=== PATIENT | male | born 1985 | race Two or more races ===

== ENCOUNTER 2021-01-15 09:16 | Outpatient (CLI) | payer OTHER | END 2021-01-15 09:17 | disposition home or self-care (01) | LOC: LAB 09:16 | PROVIDERS: ATTEND Specialist | DX: E53.8 Deficiency of other specified B group vitamins (principal); Z01.818 Encounter for other preprocedural examination; R79.0 Abnormal level of blood mineral; E55.9 Vitamin D deficiency, unspecified; Z11.4 Encounter for screening for human immunodeficiency virus [HIV]; R63.4 Abnormal weight loss; K73.8 Other chronic hepatitis, not elsewhere classified; E78.00 Pure hypercholesterolemia, unspecified ==

== ENCOUNTER 2022-01-26 08:50 | Outpatient (CLI) | payer OTHER | END 2022-01-26 08:59 | disposition home or self-care (01) | LOC: LAB 08:50 | PROVIDERS: ATTEND General Practice | DX: I10 Essential (primary) hypertension (principal); E78.5 Hyperlipidemia, unspecified; D50.9 Iron deficiency anemia, unspecified; N39.0 Urinary tract infection, site not specified; Z12.11 Encounter for screening for malignant neoplasm of colon; Z11.4 Encounter for screening for human immunodeficiency virus [HIV]; E66.01 Morbid (severe) obesity due to excess calories ==

== ENCOUNTER 2022-03-06 10:22 | Outpatient (CLI) | payer OTHER | END 2022-03-06 10:32 | disposition home or self-care (01) | LOC: RAD 10:22 | PROVIDERS: ATTEND General Practice | DX: R74.9 Abnormal serum enzyme level, unspecified (principal); N18.9 Chronic kidney disease, unspecified; M25.562 Pain in left knee; I12.9 Hypertensive chronic kidney disease with stage 1 through stage 4 chronic kidney disease, or unspecified chronic kidney disease ==

== ENCOUNTER → 2022-04-01 07:59 | Outpatient (CLI) | payer OTHER | END | disposition home or self-care (01) | LOC: LAB 07:59 | PROVIDERS: ATTEND General Practice | DX: I12.9 Hypertensive chronic kidney disease with stage 1 through stage 4 chronic kidney disease, or unspecified chronic kidney disease (principal); R73.9 Hyperglycemia, unspecified; R74.9 Abnormal serum enzyme level, unspecified ==

== ENCOUNTER → 2022-05-18 08:01 | Outpatient (CLI) | payer OTHER | END | disposition home or self-care (01) | LOC: LAB 08:01 | PROVIDERS: ATTEND Surgery | DX: D46.4 Refractory anemia, unspecified (principal); E11.9 Type 2 diabetes mellitus without complications; E03.9 Hypothyroidism, unspecified; E54 Ascorbic acid deficiency; E55.9 Vitamin D deficiency, unspecified; D51.9 Vitamin B12 deficiency anemia, unspecified; B96.81 Helicobacter pylori [H. pylori] as the cause of diseases classified elsewhere ==

== ENCOUNTER 2022-09-29 07:12 | Outpatient (CLI) | payer OTHER | END 2022-09-29 07:25 | disposition home or self-care (01) | LOC: LAB 07:12 | DX: K76.0 Fatty (change of) liver, not elsewhere classified (principal); I12.9 Hypertensive chronic kidney disease with stage 1 through stage 4 chronic kidney disease, or unspecified chronic kidney disease; E66.01 Morbid (severe) obesity due to excess calories; E78.2 Mixed hyperlipidemia ==

== ENCOUNTER → 2022-11-16 09:19 | Outpatient (CLI) | payer OTHER ==
[2022-11-16 09:44] LABS: ABG PH 7.437 (7.35-7.45); ABG PO2 97.1 mmHg (80-100); ABG pCO2 39.1 mmHg (35-45); SaO2 97.8 %
[2022-11-16 09:45] LABS: BASE EXCESS 1.6 mmol/l; BICARBONATE 25.8 mmol/l (23-25); allen test SATISFACTORY; o2 21 %; puncture site RADIAL RIGHT
== END | disposition home or self-care (01) ==
LOC: LAB 09:19
DX: G47.33 Obstructive sleep apnea (adult) (pediatric) (principal)

== ENCOUNTER 2022-11-25 08:07 | Outpatient (CLI) | payer OTHER ==
[2022-11-25 09:45] LABS: PH,URINE 6.5 (5.0-8.0); URINE APPEARANCE Clear; URINE BILIRRUBIN Negative (NEGATIVE); URINE BLOOD Negative; URINE COLOR Dark Yellow; URINE GLUCOSE Negative (NEGATIVE); URINE LEUKOCYTE Negative; URINE NITRATE Negative; URINE PROTEIN Negative (NEGATIVE); URINE UROBILINOGEN 0.2 E.U./dl
[2022-11-25 09:50] LABS: URINE BACTERIA 117.1 uL (0.0-1933); URINE RBC 2.7 uL (0.0-20.8)
[2022-11-25 09:51] LABS: HEMATOCRIT 44.8 % (39.0-48.0); HEMOGLOBIN 14.2 g/dL (13-16.00); MEAN CELL VOLUME 80.1 fL (80.0-100.00); MEAN CORPUSCULAR HEMOGLOBIN 25.3 pg (27.00-32.0); MEAN CORPUSCULAR HGB CONC 31.6 g/dl (32.0-36.0); PLATELET COUNT 257 K/uL (150-450); RED BLOOD COUNT 5.59 M/uL (4.00-6.00); RED CELL DISTRIBUTION WIDTH 15.2 % (11.5-14.5)
[2022-11-25 10:11] LABS: INR 1.06; PARTIAL THROMBOPLASTIN TIME 29.6 SECONDS (22.0-34.0); PROTHROMBIN TIME 11.1 SECONDS (9.0-11.5)
[2022-11-25 10:12] LABS: URINE EPITHELIAL CELLS 0.4 uL (0.0-38.8); URINE WBC 1.5 uL (0.0-23.2)
[2022-11-25 10:23] LABS: ALBUMIN 4.3 gm/dL (3.4-5.0); CALCIUM 9.5 mg/dL (8.5-10.1); CREATININE SERUM 1.18 mg/dL (0.70-1.30); GFR 69.85; GLOBULINA 3.7 G/DL (2.4-3.5); POTASSIUM 4.5 mEq/L (3.5-5.1); T4 TOTAL 8.41 UG/DL (4.5-12.1); TSH 1.37 uIU/mL (0.358-3.74)
== END 2022-11-25 10:44 | disposition home or self-care (01) ==
LOC: LAB 08:07
DX: E11.9 Type 2 diabetes mellitus without complications (principal); E03.9 Hypothyroidism, unspecified; E54 Ascorbic acid deficiency; E55.9 Vitamin D deficiency, unspecified; D51.9 Vitamin B12 deficiency anemia, unspecified; R19.5 Other fecal abnormalities; Z11.59 Encounter for screening for other viral diseases

== ENCOUNTER 2022-12-01 07:55 | Outpatient (CLI) | payer OTHER | END 2022-12-01 12:40 | disposition home or self-care (01) | LOC: LAB 07:55 | PROVIDERS: ATTEND Surgery | DX: Z11.59 Encounter for screening for other viral diseases (principal); K21.9 Gastro-esophageal reflux disease without esophagitis ==

== ENCOUNTER 2022-12-24 11:28 | Outpatient (CLI) | payer OTHER | END 2022-12-24 11:32 | disposition home or self-care (01) | LOC: LAB 11:28 | PROVIDERS: ATTEND Surgery | DX: Z20.822 Contact with and (suspected) exposure to COVID-19 (principal) ==

== ENCOUNTER 2023-02-16 07:35 | Outpatient (CLI) | payer OTHER ==
[2023-02-16 08:36] LABS: HEMATOCRIT 42.7 % (39.0-48.0); HEMOGLOBIN 13.8 g/dL (13-16.00); MEAN CELL VOLUME 78.6 fL (80.0-100.00); MEAN CORPUSCULAR HEMOGLOBIN 25.5 pg (27.00-32.0); MEAN CORPUSCULAR HGB CONC 32.4 g/dl (32.0-36.0); PLATELET COUNT 197 K/uL (150-450); RED BLOOD COUNT 5.43 M/uL (4.00-6.00)
[2023-02-16 09:37] LABS: BILIRUBIN TOTAL 1.19 mg/dL (0.3-1.2); CALCIUM 9.5 mg/dL (8.5-10.1); CHOL HDL RATIO 3.6 (0-5.0); CREATININE SERUM 0.94 mg/dL (0.70-1.30); GFR 90.3; GLOBULINA 3.1 G/DL (2.4-3.5); POTASSIUM 4.34 mEq/L (3.5-5.1); T4 TOTAL 7.34 UG/DL (4.5-12.1); TOTAL PROTEIN 7.1 gm/dL (6.4-8.2); TSH 0.979 uIU/mL (0.358-3.74)
[2023-02-16 12:50] LABS: FOLIC ACID 13.09 ng/ml (4.78-20); T3 TOTAL 1.19 ng/ml (0.846-2.02); VITAMIN D3 25 HYDROXY 33.89 ng/ml (30-120)
== END 2023-02-16 07:38 | disposition home or self-care (01) ==
LOC: LAB 07:35
PROVIDERS: ATTEND Surgery
DX: D46.4 Refractory anemia, unspecified (principal); E11.9 Type 2 diabetes mellitus without complications; E03.9 Hypothyroidism, unspecified; E54 Ascorbic acid deficiency; E55.9 Vitamin D deficiency, unspecified; D51.9 Vitamin B12 deficiency anemia, unspecified; R19.5 Other fecal abnormalities; Z11.59 Encounter for screening for other viral diseases

== ENCOUNTER 2023-05-12 07:07 | Outpatient (CLI) | payer OTHER ==
[2023-05-12 08:34] LABS: HEMATOCRIT 40.1 % (39.0-48.0); HEMOGLOBIN 13.4 g/dL (13-16.00); MEAN CELL VOLUME 77.9 fL (80.0-100.00); MEAN CORPUSCULAR HEMOGLOBIN 25.9 pg (27.00-32.0); MEAN CORPUSCULAR HGB CONC 33.3 g/dl (32.0-36.0); PLATELET COUNT 219 K/uL (150-450); RED BLOOD COUNT 5.15 M/uL (4.00-6.00); RED CELL DISTRIBUTION WIDTH 16.6 % (11.5-14.5)
[2023-05-12 09:19] LABS: ALBUMIN 3.9 gm/dL (3.4-5.0); BILIRUBIN TOTAL 1.48 mg/dL (0.3-1.2); CALCIUM 9.7 mg/dL (8.5-10.1); CREATININE SERUM 0.99 mg/dL (0.70-1.30); GFR 85.06; GLOBULINA 3.2 G/DL (2.4-3.5); POTASSIUM 4.14 mEq/L (3.5-5.1); T4 TOTAL 5.96 UG/DL (4.5-12.1); TOTAL PROTEIN 7.1 gm/dL (6.4-8.2); TSH 0.913 uIU/mL (0.358-3.74)
[2023-05-12 11:26] LABS: FOLIC ACID 6.54 ng/ml (4.78-20); T3 TOTAL 1.1 ng/ml (0.846-2.02); VITAMIN D3 25 HYDROXY 33.43 ng/ml (30-120)
== END 2023-05-12 07:08 | disposition home or self-care (01) ==
LOC: LAB 07:07
PROVIDERS: ATTEND Surgery
DX: D64.4 Congenital dyserythropoietic anemia (principal); E11.9 Type 2 diabetes mellitus without complications; E03.9 Hypothyroidism, unspecified; E54 Ascorbic acid deficiency; E55.9 Vitamin D deficiency, unspecified; D51.9 Vitamin B12 deficiency anemia, unspecified; R19.5 Other fecal abnormalities; Z11.59 Encounter for screening for other viral diseases

== ENCOUNTER 2023-09-24 06:54 | Outpatient (CLI) | payer OTHER ==
[2023-09-24 08:13] LABS: HEMATOCRIT 39.3 % (39.0-48.0); HEMOGLOBIN 12.9 g/dL (13-16.00); MEAN CELL VOLUME 79.3 fL (80.0-100.00); MEAN CORPUSCULAR HGB CONC 32.8 g/dl (32.0-36.0); PLATELET COUNT 253 K/uL (150-450); RED BLOOD COUNT 4.96 M/uL (4.00-6.00); RED CELL DISTRIBUTION WIDTH 15.6 % (11.5-14.5)
[2023-09-24 08:58] LABS: ALBUMIN 4.2 gm/dL (3.4-5.0); BILIRUBIN TOTAL 1.53 mg/dL (0.3-1.2); CALCIUM 9.8 mg/dL (8.5-10.1); CHOL HDL RATIO 2.1 (0-5.0); CREATININE SERUM 0.85 mg/dL (0.70-1.30); FERRITIN 78.2 NG/ML (26-388); GFR 101.42; GLOBULINA 3.2 G/DL (2.4-3.5); POTASSIUM 4.29 mEq/L (3.5-5.1); T4 TOTAL 7.66 UG/DL (4.5-12.1); TOTAL PROTEIN 7.4 gm/dL (6.4-8.2); TSH 1.38 uIU/mL (0.358-3.74)
[2023-09-24 10:20] LABS: FOLIC ACID 11.8 ng/ml (4.78-20); T3 TOTAL 1.12 ng/ml (0.846-2.02); VITAMIN D3 25 HYDROXY 49.23 ng/ml (30-120)
== END 2023-09-24 06:55 | disposition home or self-care (01) ==
LOC: LAB 06:54
PROVIDERS: ATTEND General Practice
DX: D50.0 Iron deficiency anemia secondary to blood loss (chronic) (principal); I11.9 Hypertensive heart disease without heart failure; E03.9 Hypothyroidism, unspecified; E55.9 Vitamin D deficiency, unspecified; E78.2 Mixed hyperlipidemia

== ENCOUNTER 2023-12-24 07:59 | Outpatient (CLI) | payer OTHER ==
[2023-12-24 09:33] LABS: HEMOGLOBIN 13.6 g/dL (13-16.00); MEAN CELL VOLUME 82.2 fL (80.0-100.00); MEAN CORPUSCULAR HEMOGLOBIN 26.6 pg (27.00-32.0); MEAN CORPUSCULAR HGB CONC 32.4 g/dl (32.0-36.0); PLATELET COUNT 259 K/uL (150-450); RED BLOOD COUNT 5.12 M/uL (4.00-6.00); RED CELL DISTRIBUTION WIDTH 15.8 % (11.5-14.5)
[2023-12-24 10:35] LABS: ALBUMIN 4.2 gm/dL (3.4-5.0); BILIRUBIN TOTAL 1.3 mg/dL (0.3-1.2); CALCIUM 9.6 mg/dL (8.5-10.1); CHOL HDL RATIO 2.1 (0-5.0); CREATININE SERUM 0.83 mg/dL (0.70-1.30); GFR 104.25; GLOBULINA 3.1 G/DL (2.4-3.5); POTASSIUM 4.66 mEq/L (3.5-5.1); T4 TOTAL 7.42 UG/DL (4.5-12.1); TOTAL PROTEIN 7.3 gm/dL (6.4-8.2); TSH 0.896 uIU/mL (0.358-3.74)
[2023-12-24 10:41] LABS: FOLIC ACID 9.85 ng/ml (4.78-20); T3 TOTAL 1.01 ng/ml (0.846-2.02); VITAMIN D3 25 HYDROXY 37.79 ng/ml (30-120)
== END 2023-12-24 08:00 | disposition home or self-care (01) ==
LOC: LAB 07:59
PROVIDERS: ATTEND Surgery
DX: D46.4 Refractory anemia, unspecified (principal); E11.9 Type 2 diabetes mellitus without complications; E03.9 Hypothyroidism, unspecified; E54 Ascorbic acid deficiency; E55.9 Vitamin D deficiency, unspecified; D51.9 Vitamin B12 deficiency anemia, unspecified; R19.5 Other fecal abnormalities; Z11.59 Encounter for screening for other viral diseases

== ENCOUNTER 2024-04-14 07:59 | Outpatient (CLI) | payer OTHER ==
[2024-04-14 08:42] LABS: HEMATOCRIT 41.3 % (39.0-48.0); HEMOGLOBIN 13.7 g/dL (13-16.00); MEAN CELL VOLUME 80.3 fL (80.0-100.00); MEAN CORPUSCULAR HEMOGLOBIN 26.6 pg (27.00-32.0); MEAN CORPUSCULAR HGB CONC 33.2 g/dl (32.0-36.0); PLATELET COUNT 238 K/uL (150-450); RED BLOOD COUNT 5.14 M/uL (4.00-6.00); RED CELL DISTRIBUTION WIDTH 15.5 % (11.5-14.5)
[2024-04-14 09:25] LABS: ALBUMIN 4.2 gm/dL (3.4-5.0); BILIRUBIN TOTAL 1.42 mg/dL (0.3-1.2); CALCIUM 9.7 mg/dL (8.5-10.1); CHOL HDL RATIO 2.1 (0-5.0); CREATININE SERUM 0.91 mg/dL (0.70-1.30); GFR 93.24; GLOBULINA 3.2 G/DL (2.4-3.5); POTASSIUM 4.36 mEq/L (3.5-5.1); T4 TOTAL 6.85 UG/DL (4.5-12.1); TOTAL PROTEIN 7.4 gm/dL (6.4-8.2); TSH 0.946 uIU/mL (0.358-3.74)
[2024-04-14 15:23] LABS: FOLIC ACID 9.51 ng/ml (4.78-20); T3 TOTAL 1.06 ng/ml (0.846-2.02); VITAMIN D3 25 HYDROXY 35.74 ng/ml (30-120)
== END 2024-04-14 08:00 | disposition home or self-care (01) ==
LOC: LAB 07:59
PROVIDERS: ATTEND Surgery
DX: D46.4 Refractory anemia, unspecified (principal); E11.9 Type 2 diabetes mellitus without complications; E03.9 Hypothyroidism, unspecified; E54 Ascorbic acid deficiency; E55.9 Vitamin D deficiency, unspecified; D51.9 Vitamin B12 deficiency anemia, unspecified; R19.5 Other fecal abnormalities; Z11.59 Encounter for screening for other viral diseases

== ENCOUNTER → 2024-12-12 08:30 | Outpatient (CLI) | payer OTHER ==
[2024-12-12 09:33] LABS: BASO % 0.7 % (0.1-1.2); EOS # 0.08 (0.04-0.54); EOS % 1.9 % (0.7-7.0); LYMPH # 1.97 (1.18-3.74); LYMPH % 47.5 % (19.3-53.1); MEAN PLATELET VOLUME 11.10 fl (9.4-12.4); MONO # 0.40 (0.24-0.82); MONO % 9.6 % (4.7-12.5); NEUT # 1.66 (1.56-6.13); NEUT % 40.1 % (34.0-71.1); RED CELL DISTRIBUTION WIDTH 15.0 % (11.6-14.4)
[2024-12-12 10:27] LABS: ALT/SGPT 28.0 U/L (12-78); AST/SGOT 14.0 U/L (15-37); BILIRUBIN TOTAL 1.87 mg/dL (0.3-1.2); BUN CREA RATIO 11.0 (7.0-25.0); CHOL HDL RATIO 2.3 (0-5.0); CREATININE SERUM 1.03 mg/dL (0.70-1.30); FE 145.0 ug/dl (65-175); GFR 80.82; GLOBULINA 3.2 G/DL (2.4-3.5); GLUCOSE FASTING 87.0 mg/dL (65-100); HDL 81.0 mg/dl (40-60); LDL 96.0 mg/dl (0-130); OSMOLALITY SERUM 286.0 MOSM/KG (275-295); T4 TOTAL 6.17 UG/DL (4.5-12.1); TSH 0.983 uIU/mL (0.358-3.74); VLDL 10.0 (0-39)
[2024-12-12 13:03] LABS: FOLIC ACID 8.91 ng/ml (4.78-20); T3 TOTAL 1.04 ng/ml (0.846-2.02); VITAMIN D3 25 HYDROXY 26.66 ng/ml (30-120)
== END | disposition home or self-care (01) ==
LOC: LAB 08:30
PROVIDERS: ATTEND Surgery
DX: D46.4 Refractory anemia, unspecified (principal); E11.9 Type 2 diabetes mellitus without complications; E03.9 Hypothyroidism, unspecified; E54 Ascorbic acid deficiency; E55.9 Vitamin D deficiency, unspecified; D51.9 Vitamin B12 deficiency anemia, unspecified; R19.5 Other fecal abnormalities; Z11.59 Encounter for screening for other viral diseases